=== PATIENT | male | born 2000 | race Hispanic/Latino ===

== ENCOUNTER 2024-04-14 13:46 | Emergency (ER) | payer SELFPAY ==
[~2024-04-14] VITALS: Ht 177.8 cm; Wt 117.9 kg
[2024-04-14] MEDS ORDERED: KETOROLAC TROMETHAMINE 60 MG/2 ML VIAL IM ONE (14:30)
[2024-04-14] MEDS ORDERED: SODIUM CHLORIDE FLUSH 10 ML SYR IV PRN (14:30)
[2024-04-14] MEDS: HYDROCODONE/APAP 5MG-325MG TAB PO ONE (15:13)
[2024-04-14 16:02] LABS: BASOPHILS % 0.3 % (0.0-1.0); EOSINOPHILS % 0.3 % (0.0-6.0); HEMATOCRIT 48.9 % (38.2-49.6); HEMOGLOBIN 16.4 g/dL (14.0-18.0); LYMPHOCYTES # (AUTO) 1.3 (1.0-3.2); LYMPHOCYTES % 8.5 % (18.0-39.1); MEAN CORPUSCULAR HEMOGLOBIN 26.6 pg (28-32); MEAN CORPUSCULAR HGB CONC 33.5 g/dL (31-35); MEAN CORPUSCULAR VOLUME 79.3 fL (81-99); MONOCYTES # (AUTO) 0.7 (0.2-0.8); MONOCYTES % 4.4 % (4.4-11.3); NEUTROPHILS # (AUTO) 13.7 (2.1-6.9); NEUTROPHILS % 86.2 % (38.7-80.0); PLATELET COUNT 311 x10e3/uL (140-360); RED BLOOD COUNT 6.17 x10e6/uL (4.3-5.7); RED CELL DISTRIBUTION WIDTH 13.2 % (11.7-14.4); WHITE BLOOD COUNT 15.82 x10e3/uL (4.8-10.8)
[2024-04-14 16:25] LABS: ALANINE AMINOTRANSFERASE 78 IU/L (0-55); ALBUMIN 4.6 g/dL (3.5-5.0); ALBUMIN/GLOBULIN RATIO 1.2 (0.8-2.0); ALKALINE PHOSPHATASE 65 IU/L (40-150); ANION GAP 16.4 mmol/L (8-16); BILIRUBIN,TOTAL 0.7 mg/dL (0.2-1.2); BLOOD UREA NITROGEN 11 mg/dL (7-26); BUN/CREATININE RATIO 13 (6-25); CALCIUM 9.6 mg/dL (8.4-10.2); CARBON DIOXIDE 24 mmol/L (22-29); CHLORIDE 102 mmol/L (98-107); CREATININE, SERUM 0.85 mg/dL (0.72-1.25); EST GLOMERULAR FILTRATION RATE 126 ML/MIN (>=60); GLUCOSE 112 mg/dL (74-118); SODIUM 139 mmol/L (136-145); TOTAL PROTEIN 8.3 g/dL (6.5-8.1)
[2024-04-14 16:40] LABS: POTASSIUM 3.4 mmol/L (3.5-5.1)
[2024-04-14 16:41] LABS: TROPONIN I < 0.001 ng/mL (0-0.300)
[2024-04-14 17:10] VITALS: PULSE 78; RESP 20; O2SAT 96
[2024-04-14] MEDS: SODIUM CHLORIDE 0.9% 1000ML 1,000 ML IV ONE (17:10)
[2024-04-14 17:20] VITALS: TEMP 98.8
[2024-04-14] MEDS: ONDANSETRON HCL INJ 2MG/ML 2ML 2 MG/ML VIAL IV STA (17:37)
[2024-04-14] MEDS: PROPOFOL IV EMULSION 10 MG/ML 20 ML VIAL IV ONE (17:40)
[2024-04-14] MEDS: KETAMINE HCL INJ 50 MG/ML 10 ML VIAL IV ONE (17:40)
[2024-04-14 18:20] VITALS: BP 169/101; PULSE 88; RESP 30
[2024-04-14 19:00] VITALS: PULSE 70; RESP 16; TEMP 98.1; O2SAT 96
== END 2024-04-14 19:10 | disposition home or self-care (01) ==
LOC: ER 14:34
DX: M25.511 Pain in right shoulder (principal); S43.084A Other dislocation of right shoulder joint, initial encounter; R42 Dizziness and giddiness; W10.8XXA Fall (on) (from) other stairs and steps, initial encounter; Y93.01 Activity, walking, marching and hiking; Y92.89 Other specified places as the place of occurrence of the external cause
CPT/HCPCS: 23655; 36415; 71045; 73000; 73020; 73030; 80053; 84484; 85025; 93005; 94760; 94799; 99284; J2405; J2704; J7030